=== PATIENT | female | born 1960 ===

== ENCOUNTER 2018-09-24 08:14 | Day surgery (SDC) | payer OTHER ==
[~2018-09-24 08:14] MED LIST: AMITRIPTYLINE H25 MG PO; CLONAZEPAM1 MG PO; DELTASONE20 MG PO; LATANOPROST2.5 ML OP; LIPITOR40 MG PO; LYRICA225 MG PO; NABUMETONE750 MG PO; NORFLEX PO; PRINIVIL20 MG PO; PROTONIX40 MG PO; RESTORIL30 M1 PO; SKELAXIN800 MG PO; THEOPHYLLINE400 MG PO; TRAMADOL HCL300 MG PO; VENTOLIN HFA18 GM IH
[2018-09-24] MEDS ORDERED: KEFLEX500 MG PO (11:53)
[2018-09-24] MEDS ORDERED: ACETAMINOPHEN-1 EAC2 PO (11:54)
== END 2018-09-24 13:15 | disposition home or self-care (01) ==
LOC: CIR.AMB 08:14
DX: N39.41 Urge incontinence (principal); N32.81 Overactive bladder
CPT/HCPCS: 64581; C1778

== ENCOUNTER → 2018-10-01 | Day surgery (SDC) | payer OTHER ==
[~2018-10-01] MED LIST changes: +ACETAMINOPHEN-1 EAC2 PO; +KEFLEX500 MG PO
== END | disposition home or self-care (01) ==
LOC: CIR.AMB 04:40
DX: N39.41 Urge incontinence (principal); N32.81 Overactive bladder
CPT/HCPCS: 64580; C1767

== ENCOUNTER 2024-02-26 06:45 | Day surgery (SDC) | payer OTHER ==
[2024-02-26] MEDS ORDERED: PANTOPRAZOLE SODIUM 40 MG/VIAL VIAL IV ONE (09:00)
[2024-02-26] MEDS ORDERED: TRAM1TAB98 PO (10:44)
[2024-02-26] MEDS ORDERED: CEPHALEXIN250 MG PO (10:45)
[2024-02-26] MEDS ORDERED: CEFAZOLIN SODIUM 1,000 MG VIAL IV ONE (11:15)
[2024-02-26] MEDS ORDERED: LIDOCAINE HCL 1% 20ML VIAL IJ ONE (11:15)
== END 2024-02-26 11:45 | disposition home or self-care (01) ==
LOC: CIR.AMB 06:45
PROVIDERS: ATTEND Obstetrics & Gynecology Gynecology
DX: R15.9 Full incontinence of feces (principal); N39.41 Urge incontinence; T85.113A Breakdown (mechanical) of implanted electronic neurostimulator, generator, initial encounter; N32.81 Overactive bladder
CPT/HCPCS: 64590; C1767